=== PATIENT | female | born 1960 | race African-American/Black ===

== ENCOUNTER 2021-03-29 18:08 | Inpatient (IN) | payer MEDICAID ==
[~2021-03-29] VITALS: Ht 160 cm; Wt 48.5 kg
[2021-03-29] MEDS ORDERED: SODIUM CHLORIDE 0.9% 1000ML BAG (SEPSIS BOLUS) IV ONE (18:45)
[2021-03-29 19:47] LABS: HEMATOCRIT. 35.4 % (36.0-48.0); HEMOGLOBIN. 11.3 g/dL (12.0-16.0); MEAN CORPUSCULAR HEMOGLOBIN 28.8 pg (28.0-32.0); MEAN PLATELET VOLUME 8.8 fl (7.4-10.4); PLATELET 489 x1000/uL (130-400); RED BLOOD CELL COUNT 3.93 mill/uL (4.2-5.4); RED CELL DISTRIBUTION WIDTH 15.6 % (11.6-14.6)
[2021-03-29] MEDS ORDERED: ONDANSETRON HCL 4MG/2ML INJ IV STA (19:50)
[2021-03-29] MEDS ORDERED: MORPHINE SULFATE 4 MG/ML CPJ (NOT FOR IM USE) IV STA (19:50)
[2021-03-29 19:52] LABS: CHLORIDE 91 mEq/L (98-107)
[2021-03-29 19:55] LABS: INR 1.2; PARTIAL THROMBOPLASTIN TIME 30.3 sec (23.4-31.0); PROTHROMBIN TIME 12.3 sec (9.6-11.0)
[2021-03-29] MEDS ORDERED: MAGNESIUM 1 G PREMIX 100 ML IV ONE (20:45)
[2021-03-29 20:56] LABS: PLATELET ESTIMATE INCREASED
[2021-03-29] MEDS ORDERED: PIPERACILLIN/TAZ 3.375G PREMIX 50 ML IV ONE (21:00)
[2021-03-29] MEDS ORDERED: VANCOMYCIN 1 G PREMIX 200 ML IV ONE (21:00)
[2021-03-30 04:51] LABS: CLARITY URINE CLOUDY (CLEAR); COLOR URINE YELLOW (YELLOW); KETONES URINE NEGATIVE (NEGATIVE); LEUKOCYTE ESTERASE URINE 1+ (NEGATIVE); NITRITE URINE NEGATIVE (NEGATIVE); OCCULT BLOOD URINE NEGATIVE (NEGATIVE); PH URINE 5.5 (4.5-8.0); PROTEIN URINE 1+ (NEGATIVE); SPECIFIC GRAVITY URINE 1.017 (1.005-1.030); UROBILINOGEN URINE 0.2 E.U./dL (0.2-1.0)
[2021-03-30] MEDS ORDERED: NALOXONE HCL 0.4MG/ML VIAL IV PRN (08:45)
[2021-03-30] MEDS ORDERED: ACETAMINOPHEN 650MG/20.3ML UDC GT PRN (08:45)
[2021-03-30] MEDS ORDERED: CLONIDINE 0.1MG TABLET PO PRN (08:45)
[2021-03-30] MEDS ORDERED: PIPERACILLIN/TAZOBACTAM 3.375 G in DEXTROSE 5% WATER 50 ML IV SCH (08:45)
[2021-03-30] MEDS ORDERED: ONDANSETRON HCL 4MG/2ML INJ IV PRN (08:45)
[2021-03-30] MEDS ORDERED: LIDOCAINE HCL/PF 1% 2ML VIAL ONE (09:24)
[2021-03-30] MEDS ORDERED: SODIUM CHLORIDE 0.9% 1,000 ML IV SCH (09:30)
[2021-03-30] MEDS: PIPERACILLIN/TAZOBACTAM 2.25G in DEXTROSE 5% WATER 50ML IV SCH ×2 (09:34→18:01)
[2021-03-30] MEDS: MORPHINE SULFATE 2 MG/ML CPJ (NOT FOR IM USE) IV PRN ×3 (09:34→22:37)
[2021-03-30 10:52] LABS: HEMOGLOBIN. 10.8 g/dL (12.0-16.0); MEAN CORPUSCULAR HEMOGLOBIN 29.1 pg (28.0-32.0); MEAN CORPUSCULAR VOLUME 88.9 fL (81.0-99.0); MEAN PLATELET VOLUME 9.1 fl (7.4-10.4); PLATELET 440 x1000/uL (130-400); RED BLOOD CELL COUNT 3.71 mill/uL (4.2-5.4); RED CELL DISTRIBUTION WIDTH 15.9 % (11.6-14.6)
[2021-03-30 12:34] LABS: NUCLEATED RED BLOOD CELLS 3 /100 WBC
[2021-03-30 12:35] LABS: PLATELET ESTIMATE INCREASED
[2021-03-30 12:47] LABS: BG CARBOXYHEMOGLOBIN 0.3 % (0.5-1.5); BG DEOXYHEMOGLOBIN 3.1 % (0.0-5.0); BG FRACTION INSPIRED OXYGEN 21; BG HCO3 ACT 11.6 mmol/L (22.0-26.0); BG METHEMOGLOBIN 0.6 % (0.0-1.5); BG OXYGEN SATURATION 96.9 % (92.0-98.5); BG PCO2 29.9 mmHg (35.0-45.0); BG PH 7.206 (7.350-7.450); BG PO2 105.3 mmHg (75.0-100.0); BG SAMPLE SITE RIGHT RADIAL; BG TOTAL HEMOGLOBIN 10.4 g/dL (12.0-18.0); BG VENT MODE ROOM AIR
[2021-03-30] MEDS: DIPHENHYDRAMINE 50MG/ML VIAL IV PRN (14:05)
[2021-03-30] MEDS ORDERED: SODIUM BICARBONATE 8.4% 1 MEQ/ML 50ML SYR IV NR (14:30)
[2021-03-30] MEDS ORDERED: POTASSIUM CHLORIDE 20MEQ TABLET SR PO NR (14:30)
[2021-03-30] MEDS ORDERED: MAGNESIUM 2 G PREMIX 50 ML IV ONE (14:30)
[2021-03-30] MEDS ORDERED: SODIUM BICARBONATE 8.4% MEQ/ML 50ML VIAL IV ONE (14:58)
[2021-03-30] MEDS: CITRIC ACID/SODIUM CITRATE SOLN 30ML UDC PO SCH ×2 (15:04→18:28)
[2021-03-30 15:28] LABS: SODIUM URINE RANDOM < 5 mEq/L
[2021-03-30] MEDS: SODIUM BICARBONATE 150 MEQ in DEXTROSE 5% WATER 1,000 ML IV SCH (15:57)
[2021-03-30] MEDS ORDERED: CEFEPIME 2,000 MG in DEXT 5% WATER 100 ML IV SCH (16:00)
[2021-03-30 22:00] VITALS: BP 103/58
[2021-03-31] VITALS: BP 88/53
[2021-03-31 00:01] VITALS: BP 103/58
[2021-03-31 04:00] VITALS: BP 103/52
[2021-03-31] MEDS: MORPHINE SULFATE 2 MG/ML CPJ (NOT FOR IM USE) IV PRN ×4 (04:20→21:13)
[2021-03-31] MEDS: SODIUM BICARBONATE 150 MEQ in DEXTROSE 5% WATER 1,000 ML IV SCH ×2 (04:57→16:25)
[2021-03-31 08:00] VITALS: BP 100/50
[2021-03-31] MEDS: CITRIC ACID/SODIUM CITRATE SOLN 30ML UDC PO SCH ×3 (09:50→16:25)
[2021-03-31] MEDS: INSULIN LISPRO 100 UNITS/ML SUBCUT SCH ×3 (12:08→21:00)
[2021-03-31] MEDS: BLOOD SUGAR DIAGNOSTIC STRIP TEST SCH ×3 (12:08→21:14)
[2021-03-31] MEDS: DEXTROSE 50% WATER 50ML SYRINGE IV PRN ×2 (12:21→20:54)
[2021-03-31 14:46] LABS: BASOPHILS % 0.3 % (0.0-2.0); EOSINOPHILS % 0.5 % (0.0-5.0); HEMATOCRIT. 26.8 % (36.0-48.0); HEMOGLOBIN. 8.8 g/dL (12.0-16.0); LYMPHOCYTES % 7.1 % (20.0-50.0); MEAN CORPUSCULAR HEMOGLOBIN 28.6 pg (28.0-32.0); MEAN CORPUSCULAR VOLUME 87.2 fL (81.0-99.0); MEAN PLATELET VOLUME 8.7 fl (7.4-10.4); MONOCYTES % 5.7 % (2.0-8.0); NEUTROPHILS % 86.4 % (40.0-76.0); PLATELET 428 x1000/uL (130-400); RED BLOOD CELL COUNT 3.07 mill/uL (4.2-5.4); RED CELL DISTRIBUTION WIDTH 15.9 % (11.6-14.6)
[2021-03-31 14:57] LABS: CHLORIDE 87 mEq/L (98-107)
[2021-03-31 15:03] LABS: PHOSPHORUS 3.6 mg/dL (2.5-4.9)
[2021-03-31 15:04] LABS: LDL CHOLESTEROL 57 mg/dL (5-100)
[2021-03-31 15:05] LABS: HDL CHOLESTEROL 45 mg/dL (40-59)
[2021-03-31] MEDS: CEFEPIME 2,000 MG in DEXT 5% WATER 100 ML IV SCH (16:24)
[2021-03-31] MEDS ORDERED: POTASSIUM CHLORIDE INJ 80 MEQ in DEXT 5% WATER 500 ML IV ONE (17:00)
[2021-03-31] MEDS: DEXT 5%/0.9% NACL 1,000 ML IV SCH (17:21)
[2021-03-31] MEDS: VANCOMYCIN 500 MG PREMIX 100 ML IV SCH (17:21)
[2021-03-31 20:00] VITALS: BP 89/47
[2021-04-01] VITALS: BP 102/66
[2021-04-01] MEDS: MORPHINE SULFATE 2 MG/ML CPJ (NOT FOR IM USE) IV PRN ×5 (01:37→22:17)
[2021-04-01] MEDS: DEXT 5%/0.9% NACL 1,000 ML IV SCH ×2 (02:27→14:59)
[2021-04-01] MEDS ORDERED: POTASSIUM CHLORIDE 20MEQ/PACKET GT NR (02:30)
[2021-04-01 04:00] VITALS: BP 104/36
[2021-04-01] MEDS: BLOOD SUGAR DIAGNOSTIC STRIP TEST SCH ×4 (06:16→21:00)
[2021-04-01] MEDS: INSULIN LISPRO 100 UNITS/ML SUBCUT SCH ×4 (06:16→21:00)
[2021-04-01 08:00] VITALS: BP 96/45
[2021-04-01] MEDS: VANCOMYCIN 500 MG PREMIX 100 ML IV SCH ×2 (11:54→22:15)
[2021-04-01 12:00] VITALS: BP 113/50
[2021-04-01 13:15] LABS: HEMATOCRIT. 23.8 % (36.0-48.0); MEAN CORPUSCULAR HEMOGLOBIN 29.9 pg (28.0-32.0); MEAN CORPUSCULAR VOLUME 89.2 fL (81.0-99.0); MEAN PLATELET VOLUME 8.9 fl (7.4-10.4); PLATELET 405 x1000/uL (130-400); RED BLOOD CELL COUNT 2.67 mill/uL (4.2-5.4); RED CELL DISTRIBUTION WIDTH 15.7 % (11.6-14.6)
[2021-04-01 13:55] LABS: CHLORIDE 98 mEq/L (98-107)
[2021-04-01 14:00] LABS: PHOSPHORUS 1.4 mg/dL (2.5-4.9)
[2021-04-01 14:19] LABS: PLATELET ESTIMATE SLIGHTLY INCREASED
[2021-04-01] MEDS ORDERED: METOCLOPRAMIDE HCL 10MG/2ML VIAL IV SCH (14:30)
[2021-04-01] MEDS ORDERED: METOCLOPRAMIDE HCL 10MG TABLET PO PRN (14:30)
[2021-04-01] MEDS ORDERED: ONDANSETRON HCL 4MG/2ML INJ IV PRN (15:00)
[2021-04-01] MEDS: CEFEPIME 2,000 MG in DEXT 5% WATER 100 ML IV SCH (15:58)
[2021-04-01 16:00] VITALS: BP 105/50
[2021-04-01] MEDS: METOCLOPRAMIDE HCL 10MG/2ML VIAL IV SCH (17:46)
[2021-04-01] MEDS ORDERED: POTASSIUM CHLORIDE 20MEQ TABLET SR PO NR (19:30)
[2021-04-01 20:00] VITALS: BP 97/53
[2021-04-01] MEDS ORDERED: MAGNESIUM 2 G PREMIX 50 ML IV NR (20:30)
[2021-04-01] MEDS ORDERED: POTASSIUM CHLORIDE 20MEQ/PACKET NG NR (20:42)
[2021-04-02] VITALS (10 sets, daily range): BP systolic 95–124; BP diastolic 41–59
[2021-04-02] MEDS: METOCLOPRAMIDE HCL 10MG/2ML VIAL IV SCH ×4 (00:27→17:53)
[2021-04-02] MEDS: MORPHINE SULFATE 2 MG/ML CPJ (NOT FOR IM USE) IV PRN ×5 (02:26→23:53)
[2021-04-02 05:39] LABS: CHLORIDE 98 mEq/L (98-107)
[2021-04-02] MEDS: CEFEPIME 2,000 MG in DEXT 5% WATER 100 ML IV SCH ×2 (05:45→17:52)
[2021-04-02 06:19] LABS: BASOPHILS % 0.7 % (0.0-2.0); EOSINOPHILS % 1.9 % (0.0-5.0); HEMATOCRIT. 21.9 % (36.0-48.0); HEMOGLOBIN. 7.2 g/dL (12.0-16.0); MEAN CORPUSCULAR HEMOGLOBIN 29.2 pg (28.0-32.0); MEAN CORPUSCULAR VOLUME 89.4 fL (81.0-99.0); NEUTROPHILS % 72.4 % (40.0-76.0); PLATELET 401 x1000/uL (130-400); RED BLOOD CELL COUNT 2.45 mill/uL (4.2-5.4); RED CELL DISTRIBUTION WIDTH 15.9 % (11.6-14.6)
[2021-04-02] MEDS: INSULIN LISPRO 100 UNITS/ML SUBCUT SCH ×4 (06:35→21:00)
[2021-04-02] MEDS: BLOOD SUGAR DIAGNOSTIC STRIP TEST SCH ×4 (06:35→21:00)
[2021-04-02] MEDS: DEXT 5%/0.9% NACL 1,000 ML IV SCH (08:15)
[2021-04-02] MEDS: VANCOMYCIN 500 MG PREMIX 100 ML IV SCH ×2 (08:15→23:13)
[2021-04-02] MEDS: HYDROCODONE/ACETAMINOPHEN 5/325MG TABLET PO PRN (11:59)
[2021-04-02] MEDS: POTASSIUM-SODIUM PHOSPHATE POWDER PACKET PO SCH ×2 (11:59→17:52)
[2021-04-02] MEDS ORDERED: POTASSIUM PHOS,M-BASIC-D-BASIC 30 MMOL in SODIUM CHLORIDE 0.9% 500 ML IV SCH (12:00)
[2021-04-02] MEDS: PSYLLIUM SEED PACKET PO SCH ×2 (15:19→17:56)
[2021-04-02 16:48] LABS: HAPTOGLOBIN 182 mg/dL (30-200)
[2021-04-02 16:56] LABS: FERRITIN 203 ng/mL (10-291)
[2021-04-02 16:57] LABS: TOTAL IRON BINDING CAPACITY 320 ug/dL (250-450)
[2021-04-02 17:08] LABS: HEPATITIS B SURFACE ANTIGEN NEGATIVE
[2021-04-02 17:14] LABS: VITAMIN B12 SERUM 711 pg/mL (211-911)
[2021-04-02 17:37] LABS: HEPATITIS A AB IGM NEGATIVE (NEGATIVE)
[2021-04-03] VITALS: BP 127/51
[2021-04-03 01:06] LABS: HEMATOCRIT 29.4 % (36.0-48.0); HEMOGLOBIN 9.8 g/dL (12.0-16.0)
[2021-04-03] MEDS: METOCLOPRAMIDE HCL 10MG/2ML VIAL IV SCH ×4 (02:54→18:00)
[2021-04-03] MEDS: MORPHINE SULFATE 2 MG/ML CPJ (NOT FOR IM USE) IV PRN ×3 (03:55→21:27)
[2021-04-03 04:00] VITALS: BP 110/41
[2021-04-03] MEDS: CEFEPIME 2,000 MG in DEXT 5% WATER 100 ML IV SCH ×2 (05:56→17:25)
[2021-04-03] MEDS: BLOOD SUGAR DIAGNOSTIC STRIP TEST SCH ×4 (06:27→21:23)
[2021-04-03] MEDS: INSULIN LISPRO 100 UNITS/ML SUBCUT SCH ×4 (06:27→21:00)
[2021-04-03 08:00] VITALS: BP 105/63
[2021-04-03] MEDS: HYDROCODONE/ACETAMINOPHEN 5/325MG TABLET PO PRN ×2 (09:17→17:00)
[2021-04-03] MEDS: PSYLLIUM SEED PACKET PO SCH ×3 (09:17→17:00)
[2021-04-03] MEDS: POTASSIUM-SODIUM PHOSPHATE POWDER PACKET PO SCH ×2 (09:17→17:25)
[2021-04-03] MEDS: VANCOMYCIN 500 MG PREMIX 100 ML IV SCH (09:22)
[2021-04-03] MEDS ORDERED: LIDOCAINE HCL 1% 20ML VIAL (Pyxis) INJ ONE (10:16)
[2021-04-03 12:00] VITALS: BP 103/62
[2021-04-03 16:00] VITALS: BP 114/60
[2021-04-03 16:44] LABS: BASOPHILS % 0.7 % (0.0-2.0); EOSINOPHILS % 3.6 % (0.0-5.0); HEMATOCRIT. 30.6 % (36.0-48.0); HEMOGLOBIN. 10.4 g/dL (12.0-16.0); LYMPHOCYTES % 11.6 % (20.0-50.0); MEAN CORPUSCULAR HEMOGLOBIN 29.9 pg (28.0-32.0); MEAN CORPUSCULAR VOLUME 88.4 fL (81.0-99.0); MEAN PLATELET VOLUME 8.7 fl (7.4-10.4); MONOCYTES % 8.2 % (2.0-8.0); NEUTROPHILS % 75.9 % (40.0-76.0); PLATELET 539 x1000/uL (130-400); RED BLOOD CELL COUNT 3.46 mill/uL (4.2-5.4)
[2021-04-03 16:51] LABS: CHLORIDE 93 mEq/L (98-107)
[2021-04-03] MEDS: PANTOPRAZOLE SODIUM 40 MG/VIAL IV SCH ×2 (16:59→21:23)
[2021-04-03] MEDS: DEXT 5%/0.9% NACL 1,000 ML IV SCH (17:35)
[2021-04-03 19:07] LABS: HEMOGLOBIN 13.4 g/dL (12.0-16.0)
[2021-04-03 20:00] VITALS: BP 136/51
[2021-04-04] VITALS (7 sets, daily range): BP systolic 106–157; BP diastolic 44–90
[2021-04-04] MEDS: METOCLOPRAMIDE HCL 10MG/2ML VIAL IV SCH ×4 (00:25→17:20)
[2021-04-04] MEDS: DEXT 5%/0.9% NACL 1,000 ML IV SCH ×2 (00:26→12:01)
[2021-04-04 01:05] LABS: HEMATOCRIT 31.6 % (36.0-48.0); HEMOGLOBIN 10.6 g/dL (12.0-16.0)
[2021-04-04] MEDS: MORPHINE SULFATE 2 MG/ML CPJ (NOT FOR IM USE) IV PRN ×4 (01:27→20:24)
[2021-04-04] MEDS: BLOOD SUGAR DIAGNOSTIC STRIP TEST SCH ×4 (05:57→20:51)
[2021-04-04] MEDS: CEFEPIME 2,000 MG in DEXT 5% WATER 100 ML IV SCH ×2 (05:57→17:41)
[2021-04-04] MEDS: INSULIN LISPRO 100 UNITS/ML SUBCUT SCH ×4 (06:36→20:59)
[2021-04-04 08:55] LABS: HEMATOCRIT. 32.7 % (36.0-48.0); HEMOGLOBIN. 10.7 g/dL (12.0-16.0); MEAN CORPUSCULAR HEMOGLOBIN 29.3 pg (28.0-32.0); MEAN CORPUSCULAR VOLUME 89.2 fL (81.0-99.0); MEAN PLATELET VOLUME 8.7 fl (7.4-10.4); PLATELET 579 x1000/uL (130-400); RED BLOOD CELL COUNT 3.67 mill/uL (4.2-5.4); RED CELL DISTRIBUTION WIDTH 15.5 % (11.6-14.6)
[2021-04-04 08:56] LABS: CHLORIDE 102 mEq/L (98-107)
[2021-04-04] MEDS: POTASSIUM-SODIUM PHOSPHATE POWDER PACKET PO SCH ×2 (08:56→17:20)
[2021-04-04] MEDS: PANTOPRAZOLE SODIUM 40 MG/VIAL IV SCH ×2 (08:56→20:45)
[2021-04-04] MEDS: PSYLLIUM SEED PACKET PO SCH ×3 (08:56→18:57)
[2021-04-04 09:09] LABS: PHOSPHORUS 2.6 mg/dL (2.5-4.9)
[2021-04-04] MEDS: HYDROCODONE/ACETAMINOPHEN 5/325MG TABLET PO PRN ×2 (10:03→17:20)
[2021-04-04] MEDS ORDERED: MAGNESIUM 2 G PREMIX 50 ML IV NR (14:30)
[2021-04-04 19:48] LABS: PLATELET ESTIMATE INCREASED
[2021-04-05] VITALS: BP 136/65
[2021-04-05] MEDS: MORPHINE SULFATE 2 MG/ML CPJ (NOT FOR IM USE) IV PRN ×6 (00:40→23:21)
[2021-04-05] MEDS: METOCLOPRAMIDE HCL 10MG/2ML VIAL IV SCH ×3 (00:41→13:04)
[2021-04-05 04:00] VITALS: BP 110/53
[2021-04-05] MEDS: BLOOD SUGAR DIAGNOSTIC STRIP TEST SCH ×4 (06:06→21:00)
[2021-04-05] MEDS: INSULIN LISPRO 100 UNITS/ML SUBCUT SCH ×4 (06:34→21:00)
[2021-04-05 07:15] LABS: BASOPHILS % 1.1 % (0.0-2.0); EOSINOPHILS % 5.7 % (0.0-5.0); HEMATOCRIT. 29.6 % (36.0-48.0); HEMOGLOBIN. 9.6 g/dL (12.0-16.0); LYMPHOCYTES % 14.6 % (20.0-50.0); MEAN CORPUSCULAR HEMOGLOBIN 29.2 pg (28.0-32.0); MEAN CORPUSCULAR VOLUME 90.1 fL (81.0-99.0); MEAN PLATELET VOLUME 8.4 fl (7.4-10.4); MONOCYTES % 8.6 % (2.0-8.0); PLATELET 491 x1000/uL (130-400); RED BLOOD CELL COUNT 3.28 mill/uL (4.2-5.4); RED CELL DISTRIBUTION WIDTH 15.8 % (11.6-14.6)
[2021-04-05 07:34] LABS: CHLORIDE 108 mEq/L (98-107)
[2021-04-05 07:43] LABS: PHOSPHORUS 2.5 mg/dL (2.5-4.9)
[2021-04-05 08:00] VITALS: BP 107/65
[2021-04-05] MEDS: POTASSIUM-SODIUM PHOSPHATE POWDER PACKET PO SCH ×2 (09:29→17:26)
[2021-04-05] MEDS: PANTOPRAZOLE SODIUM 40 MG/VIAL IV SCH ×2 (09:29→20:52)
[2021-04-05] MEDS: PSYLLIUM SEED PACKET PO SCH ×3 (09:29→17:26)
[2021-04-05 12:00] VITALS: BP 112/62
[2021-04-05 16:00] VITALS: BP 105/54
[2021-04-05 20:00] VITALS: BP 114/55
[2021-04-06] VITALS: BP 120/59
[2021-04-06] MEDS: MORPHINE SULFATE 2 MG/ML CPJ (NOT FOR IM USE) IV PRN ×5 (03:37→22:17)
[2021-04-06 04:00] VITALS: BP 101/50
[2021-04-06] MEDS: INSULIN LISPRO 100 UNITS/ML SUBCUT SCH ×4 (06:04→21:00)
[2021-04-06] MEDS: BLOOD SUGAR DIAGNOSTIC STRIP TEST SCH ×4 (06:04→21:42)
[2021-04-06 08:00] VITALS: BP 157/53
[2021-04-06 08:29] LABS: CHLORIDE 109 mEq/L (98-107)
[2021-04-06 08:36] LABS: PHOSPHORUS 2.4 mg/dL (2.5-4.9)
[2021-04-06 08:46] LABS: EOSINOPHILS % 5.1 % (0.0-5.0); HEMATOCRIT. 29.8 % (36.0-48.0); HEMOGLOBIN. 9.6 g/dL (12.0-16.0); LYMPHOCYTES % 17.6 % (20.0-50.0); MEAN CORPUSCULAR HEMOGLOBIN 28.7 pg (28.0-32.0); MEAN CORPUSCULAR VOLUME 88.7 fL (81.0-99.0); MEAN PLATELET VOLUME 8.6 fl (7.4-10.4); MONOCYTES % 9.4 % (2.0-8.0); NEUTROPHILS % 66.9 % (40.0-76.0); PLATELET 556 x1000/uL (130-400); RED BLOOD CELL COUNT 3.36 mill/uL (4.2-5.4); RED CELL DISTRIBUTION WIDTH 15.7 % (11.6-14.6)
[2021-04-06] MEDS: PSYLLIUM SEED PACKET PO SCH ×3 (08:57→17:06)
[2021-04-06] MEDS: PANTOPRAZOLE SODIUM 40 MG/VIAL IV SCH ×2 (08:57→21:42)
[2021-04-06] MEDS: POTASSIUM-SODIUM PHOSPHATE POWDER PACKET PO SCH ×2 (08:57→17:06)
[2021-04-06 12:00] VITALS: BP 123/57
[2021-04-06] MEDS ORDERED: MAGNESIUM 2 G PREMIX 50 ML IV SCH (14:00)
[2021-04-06 16:00] VITALS: BP 117/65
[2021-04-06 20:00] VITALS: BP 115/52
[2021-04-07] VITALS: BP 131/56
[2021-04-07] MEDS: MORPHINE SULFATE 2 MG/ML CPJ (NOT FOR IM USE) IV PRN ×6 (02:05→22:04)
[2021-04-07 04:00] VITALS: BP 116/57
[2021-04-07] MEDS: INSULIN LISPRO 100 UNITS/ML SUBCUT SCH ×4 (07:10→21:00)
[2021-04-07] MEDS: BLOOD SUGAR DIAGNOSTIC STRIP TEST SCH ×4 (07:29→21:00)
[2021-04-07 08:00] VITALS: BP 119/31
[2021-04-07] MEDS: PSYLLIUM SEED PACKET PO SCH ×3 (09:16→16:33)
[2021-04-07] MEDS: POTASSIUM-SODIUM PHOSPHATE POWDER PACKET PO SCH ×2 (09:16→16:33)
[2021-04-07] MEDS: PANTOPRAZOLE SODIUM 40 MG/VIAL IV SCH ×2 (09:16→22:04)
[2021-04-07 12:00] VITALS: BP 103/54
[2021-04-07 16:00] VITALS: BP 124/55
[2021-04-07 20:00] VITALS: BP 128/52
[2021-04-08] VITALS: BP 122/42
[2021-04-08] MEDS: MORPHINE SULFATE 2 MG/ML CPJ (NOT FOR IM USE) IV PRN ×5 (02:07→21:17)
[2021-04-08 04:00] VITALS: BP 104/42
[2021-04-08] MEDS: BLOOD SUGAR DIAGNOSTIC STRIP TEST SCH ×4 (06:44→21:30)
[2021-04-08] MEDS: INSULIN LISPRO 100 UNITS/ML SUBCUT SCH ×4 (06:44→21:00)
[2021-04-08 08:00] VITALS: BP 125/49
[2021-04-08] MEDS: PSYLLIUM SEED PACKET PO SCH ×3 (09:07→16:45)
[2021-04-08] MEDS: PANTOPRAZOLE SODIUM 40 MG/VIAL IV SCH ×2 (09:07→21:40)
[2021-04-08] MEDS: POTASSIUM-SODIUM PHOSPHATE POWDER PACKET PO SCH ×2 (09:07→16:45)
[2021-04-08 12:00] VITALS: BP 129/58
[2021-04-08 13:06] LABS: ATYPICAL pANCA <1:20 titer (Neg:<1:20)
[2021-04-08 14:08] LABS: SACCHAROMYCES CEREVISIAE IGG 75.4 Units (0.0-24.9); SACCHAROMYCES CEREVISIAE IGM 91.9 Units (0.0-24.9)
[2021-04-08] MEDS: HYDROCODONE/ACETAMINOPHEN 5/325MG TABLET PO PRN (14:23)
[2021-04-08 16:00] VITALS: BP 126/56
[2021-04-08 20:00] VITALS: BP 122/61
[2021-04-09 00:27] VITALS: BP 134/40
[2021-04-09] MEDS: MORPHINE SULFATE 2 MG/ML CPJ (NOT FOR IM USE) IV PRN ×5 (02:41→22:37)
[2021-04-09 04:00] VITALS: BP 145/62
[2021-04-09] MEDS: INSULIN LISPRO 100 UNITS/ML SUBCUT SCH ×4 (07:10→20:37)
[2021-04-09] MEDS: BLOOD SUGAR DIAGNOSTIC STRIP TEST SCH ×4 (07:37→20:37)
[2021-04-09 08:00] VITALS: BP 109/54
[2021-04-09] MEDS: PANTOPRAZOLE SODIUM 40 MG/VIAL IV SCH ×2 (08:55→20:37)
[2021-04-09] MEDS: POTASSIUM-SODIUM PHOSPHATE POWDER PACKET PO SCH ×2 (08:55→17:23)
[2021-04-09] MEDS: PSYLLIUM SEED PACKET PO SCH ×3 (08:56→17:23)
[2021-04-09 12:00] VITALS: BP 141/55
[2021-04-09 12:53] LABS: EOSINOPHILS % 2.7 % (0.0-5.0); HEMATOCRIT. 28.2 % (36.0-48.0); HEMOGLOBIN. 9.3 g/dL (12.0-16.0); LYMPHOCYTES % 16.6 % (20.0-50.0); MEAN CORPUSCULAR HEMOGLOBIN 29.8 pg (28.0-32.0); MEAN CORPUSCULAR VOLUME 90.5 fL (81.0-99.0); MEAN PLATELET VOLUME 8.2 fl (7.4-10.4); MONOCYTES % 8.2 % (2.0-8.0); NEUTROPHILS % 71.5 % (40.0-76.0); PLATELET 422 x1000/uL (130-400); RED BLOOD CELL COUNT 3.12 mill/uL (4.2-5.4); RED CELL DISTRIBUTION WIDTH 16.2 % (11.6-14.6)
[2021-04-09 13:09] LABS: CHLORIDE 113 mEq/L (98-107)
[2021-04-09 13:17] LABS: PHOSPHORUS 2.7 mg/dL (2.5-4.9)
[2021-04-09] MEDS: HYDROCODONE/ACETAMINOPHEN 5/325MG TABLET PO PRN ×2 (14:05→20:36)
[2021-04-09 16:00] VITALS: BP 117/59
[2021-04-09] MEDS ORDERED: MAGNESIUM 4 G PREMIX 100 ML IV NR (16:00)
[2021-04-09 20:00] VITALS: BP 144/60
[2021-04-09] MEDS: DIPHENHYDRAMINE 50MG/ML VIAL IV PRN (22:04)
[2021-04-10] VITALS: BP 118/53
[2021-04-10 04:00] VITALS: BP 102/53
[2021-04-10] MEDS: HYDROCODONE/ACETAMINOPHEN 5/325MG TABLET PO PRN ×2 (06:06→21:32)
[2021-04-10] MEDS: BLOOD SUGAR DIAGNOSTIC STRIP TEST SCH ×4 (06:36→21:16)
[2021-04-10] MEDS: INSULIN LISPRO 100 UNITS/ML SUBCUT SCH ×4 (07:10→21:00)
[2021-04-10 08:00] VITALS: BP 108/53
[2021-04-10] MEDS: POTASSIUM-SODIUM PHOSPHATE POWDER PACKET PO SCH ×2 (08:54→19:01)
[2021-04-10] MEDS: PANTOPRAZOLE SODIUM 40 MG/VIAL IV SCH ×2 (08:55→21:15)
[2021-04-10] MEDS: PSYLLIUM SEED PACKET PO SCH ×3 (08:56→19:02)
[2021-04-10] MEDS: MORPHINE SULFATE 2 MG/ML CPJ (NOT FOR IM USE) IV PRN ×3 (09:03→19:03)
[2021-04-10 12:00] VITALS: BP 139/57
[2021-04-10 16:00] VITALS: BP 114/47
[2021-04-10 20:00] VITALS: BP 134/52
[2021-04-11] VITALS: BP 129/55
[2021-04-11] MEDS: MORPHINE SULFATE 2 MG/ML CPJ (NOT FOR IM USE) IV PRN ×4 (00:09→20:06)
[2021-04-11] MEDS: HYDROCODONE/ACETAMINOPHEN 5/325MG TABLET PO PRN ×4 (03:26→22:07)
[2021-04-11 04:00] VITALS: BP 107/44
[2021-04-11] MEDS: BLOOD SUGAR DIAGNOSTIC STRIP TEST SCH ×4 (06:40→20:06)
[2021-04-11] MEDS: INSULIN LISPRO 100 UNITS/ML SUBCUT SCH ×4 (06:58→20:16)
[2021-04-11 08:00] VITALS: BP 101/50
[2021-04-11] MEDS: POTASSIUM-SODIUM PHOSPHATE POWDER PACKET PO SCH ×2 (09:19→16:43)
[2021-04-11] MEDS: PSYLLIUM SEED PACKET PO SCH ×3 (09:19→16:43)
[2021-04-11] MEDS: PANTOPRAZOLE SODIUM 40 MG/VIAL IV SCH ×2 (09:19→20:06)
[2021-04-11 12:00] VITALS: BP 144/58
[2021-04-11 16:00] VITALS: BP 110/54
[2021-04-11 19:44] VITALS: BP 148/63
[2021-04-12] VITALS: BP 134/64
[2021-04-12] MEDS: MORPHINE SULFATE 2 MG/ML CPJ (NOT FOR IM USE) IV PRN ×5 (00:42→20:30)
[2021-04-12 04:00] VITALS: BP 130/85
[2021-04-12] MEDS: BLOOD SUGAR DIAGNOSTIC STRIP TEST SCH ×4 (06:47→20:21)
[2021-04-12] MEDS: INSULIN LISPRO 100 UNITS/ML SUBCUT SCH ×4 (06:47→20:22)
[2021-04-12 08:00] VITALS: BP 150/67
[2021-04-12] MEDS: PSYLLIUM SEED PACKET PO SCH ×3 (09:00→16:25)
[2021-04-12] MEDS: PANTOPRAZOLE SODIUM 40 MG/VIAL IV SCH ×2 (09:00→20:34)
[2021-04-12] MEDS: POTASSIUM-SODIUM PHOSPHATE POWDER PACKET PO SCH ×2 (09:00→16:25)
[2021-04-12 12:00] VITALS: BP 106/55
[2021-04-12] MEDS ORDERED: MAGNESIUM 2 G PREMIX 50 ML IV NR (12:30)
[2021-04-12 16:00] VITALS: BP 121/40
[2021-04-12 20:00] VITALS: BP 142/78
[2021-04-12] MEDS: HYDROCODONE/ACETAMINOPHEN 5/325MG TABLET PO PRN (22:56)
[2021-04-13] VITALS: BP 127/62
[2021-04-13] MEDS: MORPHINE SULFATE 2 MG/ML CPJ (NOT FOR IM USE) IV PRN ×7 (01:09→23:40)
[2021-04-13 04:00] VITALS: BP 134/70
[2021-04-13] MEDS: INSULIN LISPRO 100 UNITS/ML SUBCUT SCH ×4 (06:33→21:00)
[2021-04-13] MEDS: BLOOD SUGAR DIAGNOSTIC STRIP TEST SCH ×4 (06:33→21:04)
[2021-04-13 08:00] VITALS: BP 136/70
[2021-04-13] MEDS: PANTOPRAZOLE SODIUM 40 MG/VIAL IV SCH ×2 (08:53→20:35)
[2021-04-13] MEDS: PSYLLIUM SEED PACKET PO SCH ×3 (08:53→17:00)
[2021-04-13] MEDS: POTASSIUM-SODIUM PHOSPHATE POWDER PACKET PO SCH ×2 (08:54→16:54)
[2021-04-13] MEDS: HYDROCODONE/ACETAMINOPHEN 5/325MG TABLET PO PRN (11:57)
[2021-04-13 12:00] VITALS: BP 144/75
[2021-04-13 16:00] VITALS: BP 140/60
[2021-04-13 20:00] VITALS: BP 120/41
[2021-04-14] VITALS: BP 120/52
[2021-04-14] MEDS: MORPHINE SULFATE 2 MG/ML CPJ (NOT FOR IM USE) IV PRN ×5 (03:57→22:18)
[2021-04-14 04:00] VITALS: BP 120/53
[2021-04-14] MEDS: INSULIN LISPRO 100 UNITS/ML SUBCUT SCH ×4 (05:52→20:27)
[2021-04-14] MEDS: BLOOD SUGAR DIAGNOSTIC STRIP TEST SCH ×4 (05:52→20:27)
[2021-04-14 08:00] VITALS: BP 149/68
[2021-04-14] MEDS: PSYLLIUM SEED PACKET PO SCH ×3 (09:16→17:36)
[2021-04-14] MEDS: PANTOPRAZOLE SODIUM 40 MG/VIAL IV SCH ×2 (09:16→20:51)
[2021-04-14] MEDS: POTASSIUM-SODIUM PHOSPHATE POWDER PACKET PO SCH ×2 (09:16→17:36)
[2021-04-14 12:00] VITALS: BP 142/56
[2021-04-14 16:00] VITALS: BP 137/53
[2021-04-14] MEDS ORDERED: NALOXONE HCL 0.4MG/ML VIAL IV PRN (17:45)
[2021-04-14 20:00] VITALS: BP 120/53
[2021-04-15] VITALS: BP 133/58
[2021-04-15 04:00] VITALS: BP 128/62
[2021-04-15] MEDS: BLOOD SUGAR DIAGNOSTIC STRIP TEST SCH ×4 (06:42→20:42)
[2021-04-15] MEDS: MORPHINE SULFATE 2 MG/ML CPJ (NOT FOR IM USE) IV PRN ×4 (06:43→19:58)
[2021-04-15] MEDS: INSULIN LISPRO 100 UNITS/ML SUBCUT SCH ×4 (06:43→21:00)
[2021-04-15 08:00] VITALS: BP 141/73
[2021-04-15] MEDS: PANTOPRAZOLE SODIUM 40 MG/VIAL IV SCH ×2 (09:33→20:00)
[2021-04-15] MEDS: PSYLLIUM SEED PACKET PO SCH ×3 (09:33→17:47)
[2021-04-15] MEDS: POTASSIUM-SODIUM PHOSPHATE POWDER PACKET PO SCH ×2 (09:33→17:47)
[2021-04-15 12:00] VITALS: BP 126/72
[2021-04-15 16:00] VITALS: BP 120/59
[2021-04-15 20:00] VITALS: BP 128/50
[2021-04-16] VITALS: BP 126/54
[2021-04-16] MEDS: MORPHINE SULFATE 2 MG/ML CPJ (NOT FOR IM USE) IV PRN ×4 (00:41→13:58)
[2021-04-16] MEDS: HYDROCODONE/ACETAMINOPHEN 5/325MG TABLET PO PRN ×2 (03:59→11:40)
[2021-04-16 05:11] VITALS: BP 120/56
[2021-04-16] MEDS: BLOOD SUGAR DIAGNOSTIC STRIP TEST SCH ×2 (06:15→11:43)
[2021-04-16] MEDS: INSULIN LISPRO 100 UNITS/ML SUBCUT SCH ×2 (06:15→11:44)
[2021-04-16 08:00] VITALS: BP 180/87
[2021-04-16] MEDS: PANTOPRAZOLE SODIUM 40 MG/VIAL IV SCH (08:21)
[2021-04-16] MEDS: POTASSIUM-SODIUM PHOSPHATE POWDER PACKET PO SCH (08:21)
[2021-04-16] MEDS: PSYLLIUM SEED PACKET PO SCH ×2 (08:21→12:30)
[2021-04-16 13:54] VITALS: BP 127/58
[2021-04-16 13:58] VITALS: BP 126/57
== END 2021-04-16 14:50 | DRG 720 ==
LOC: ER 18:08 → MICUSO 03-30 01:48 → 7EST 03-30 20:55
PROVIDERS: ADMIT Internal Medicine; ATTEND Internal Medicine
PROC: 30233N1 Transfusion of Nonautologous Red Blood Cells into Peripheral Vein, Percutaneous Approach (ICD-10-PCS; 2021-04-02)
PROC: 05H433Z Insertion of Infusion Device into Left Innominate Vein, Percutaneous Approach (ICD-10-PCS; principal; 2021-04-03)
PROC: B51N1ZA Fluoroscopy of Left Upper Extremity Veins using Low Osmolar Contrast, Guidance (ICD-10-PCS; 2021-04-03)
PROC: B54NZZA Ultrasonography of Left Upper Extremity Veins, Guidance (ICD-10-PCS; 2021-04-03)
DX: A41.9 Sepsis, unspecified organism (principal); E87.2 Acidosis; N17.9 Acute kidney failure, unspecified; E44.0 Moderate protein-calorie malnutrition; E87.1 Hypo-osmolality and hyponatremia; K94.11 Enterostomy hemorrhage; D64.9 Anemia, unspecified; E11.22 Type 2 diabetes mellitus with diabetic chronic kidney disease; R62.7 Adult failure to thrive; E87.6 Hypokalemia; E83.42 Hypomagnesemia; F17.200 Nicotine dependence, unspecified, uncomplicated; R65.20 Severe sepsis without septic shock; F41.9 Anxiety disorder, unspecified; F32.9 Major depressive disorder, single episode, unspecified; E86.1 Hypovolemia; E86.0 Dehydration; Z20.822 Contact with and (suspected) exposure to COVID-19; I12.9 Hypertensive chronic kidney disease with stage 1 through stage 4 chronic kidney disease, or unspecified chronic kidney disease; K52.9 Noninfective gastroenteritis and colitis, unspecified; N18.9 Chronic kidney disease, unspecified; N32.89 Other specified disorders of bladder; N39.0 Urinary tract infection, site not specified; Z53.20 Procedure and treatment not carried out because of patient's decision for unspecified reasons; Z82.49 Family history of ischemic heart disease and other diseases of the circulatory system; Z68.1 Body mass index [BMI] 19.9 or less, adult
CPT/HCPCS: 36415; 36573; 36600; 71045; 74176; 76700; 78278; 80048; 80053; 80061; 80202; 81003; 82270; 82375; 82533; 82607; 82728; 82746; 82805; 82962; 83010; 83036; 83540; 83550; 83605; 83615; 83735; 83880; 83935; 84100; 84132; 84145; 84300; 84443; 84484; 85014; 85018; 85025; 85044; 85651; 86140; 86256; 86671; 86705; 86709; 86803; 86850; 86900; 86920; 87015; 87045; 87340; 87426; 87427; 87449; 87493; 89055; 92610; 93005; 93970; 97110; 97116; 97162; 97530; 99291; A9560; C1725; C1893; C9113; J0692; J1200; J1815; J2270; J2405; J2543; J2765; J3370; J3475; J3480; J3490; J7030; J7040; J7042; J7060; J7070; J8597; P9016